=== PATIENT | female | born 1985 | race American Indian/Alaskan Native ===

== ENCOUNTER → 2018-02-12 | Outpatient (CLI) | payer BC | END | disposition home or self-care (01) | LOC: RADMRIMAIN 19:38 | PROVIDERS: ATTEND Family Medicine | DX: Z53.9 Procedure and treatment not carried out, unspecified reason (principal) ==

== ENCOUNTER 2018-02-20 23:37 | Emergency (ER) | payer BC ==
[~2018-02-20 23:37] MED LIST: ONDANSETRON 4 MG/2 ML VIAL ONE; PANTOPRAZOLE 40 MG/10 ML VIAL ONE; SODIUM CHLORIDE 0.9% 1,000 ML BAG ONE
[2018-02-21 06:58] LABS: ALT 39 U/L (9-52); AST 19 U/L (14-36); Albumin 4.2 g/dL (3.5-5.0); Alkaline Phosphatase 76 U/L (38-126); Amylase 45 U/L (30-110); Anion Gap 11 mmol/L; Blood Urea Nitrogen 15 mg/dL (7-17); Calcium 10.5 mg/dL (8.4-10.2); Carbon Dioxide 29 mmol/L (22-30); Chloride 102 mmol/L (98-107); GGT 13 U/L (12-43); Glucose 90 mg/dL (74-99); Lipase 125 U/L (23-300); Magnesium 2.1 mg/dL (1.6-2.3); Phosphorus 5.2 mg/dL (2.5-4.5); Potassium 4.5 mmol/L (3.5-5.1); Sodium 142 mmol/L (137-145); Total Bilirubin 0.4 mg/dL (0.2-1.3); Total Protein 7.1 g/dL (6.3-8.2)
[2018-02-21 07:00] LABS: Creatine Kinase 63 U/L (30-135); Creatine Kinase MB 0.4 ng/mL (0.0-2.4); Troponin I <0.012 ng/mL (0.000-0.034)
[2018-02-21 07:16] LABS: Basophils # (A) 0.1 k/uL (0-0.2); Basophils % (A) 1 %; Eosinophils # (A) 0.1 k/uL (0-0.7); Eosinophils % (A) 1 %; HCT 41.2 % (34.0-46.0); HGB 14.5 gm/dL (11.4-16.0); Lymphocytes # (A) 2.3 k/uL (1.0-4.8); Lymphocytes % (A) 29 %; MCH 30.3 pg (25.0-35.0); MCHC 35.1 g/dL (31.0-37.0); MCV 86.3 fL (80.0-100.0); Mean Platelet Volume 7.5; Monocytes # (A) 0.6 k/uL (0-1.0); Monocytes % (A) 7 %; Neutrophils # (A) 4.7 k/uL (1.3-7.7); Neutrophils % (A) 60 %; Platelet Count 279 k/uL (150-450); RBC 4.78 m/uL (3.80-5.40); RDW 12.3 % (11.5-15.5); WBC 7.8 k/uL (3.8-10.6)
--- NOTE | 2018-02-21 13:01 | US ---
History abdominal pain. Comparison none. TECHNIQUE: Right upper quadrant ultrasound. FINDINGS: Liver shows no focal defect. There is a sonolucent gallbladder. There is no wall thickening. Bile rajesh ts are not dilated. The common bile duct is 4 mm. Right kidney measures 11.6 x 5 cm. There is no hydr onephrosis. There is no ascites. Pancreas appears normal. CONCLUSION: Normal right upper quadrant sonogram.
== END 2018-02-21 01:45 | disposition home or self-care (01) ==
LOC: EC 23:37
DX: F41.9 Anxiety disorder, unspecified (principal); R10.9 Unspecified abdominal pain; R07.9 Chest pain, unspecified; R42 Dizziness and giddiness; R11.0 Nausea; E03.9 Hypothyroidism, unspecified; R00.2 Palpitations; Z87.19 Personal history of other diseases of the digestive system; Z79.899 Other long term (current) drug therapy; Z98.890 Other specified postprocedural states
CPT/HCPCS: 36415; 86900; 86901; 80053; 82150; 82550; 82553; 82977; 83690; 83735; 84100; 84484; 85025; 86850; 76705; 99284; 96374; 96375; 96361; J2405; C9113

== ENCOUNTER → 2022-09-07 | Outpatient (CLI) | payer OTHER ==
--- NOTE | 2022-09-07 15:12 | P.SLEEP ---
History of Present Illness DATE: 09/07/2022 CONSULTATION/NEW PATIENT EVALUATION HISTORY OF PRESENT ILLNESS/SLEEP-WAKE EVALUATION: 37year old lady gentleman had been evaluated in the sleep center for possible obstructive sleep apnea hypopnea syndrome. SLEEP SCHEDULE: Usually sleep schedule on weekdays from 11 PM until 7 AM, during days off from 11 PM p.m. until 8 AM. FALLING ASLEEP: Usually no problems with the falling to sleep. DURING SLEEP: Patient has loud snoring, witnessed episodes of sleep apneas. She wakes up from sleep with gasping for air, sweating, panic attacks, heartburn, grinding teeth. She wakes up from sleep 3 times with one episode of nocturia during the night. No history of hypnogogical hallucinations, sleep paralysis, or cataplexy. DURING THE DAY/WAKE STATE: In the morning patient wake up tired, has difficulties to pay attention, has problems with concentration, irritability, depression, claustrophobia. [place] sleepiness scale is 6, in November 2021 it was 15. Usually patient doesn't take naps. PAST MEDICAL HISTORY: ALLERGY, hypothyroidism, anxiety, depression, acid reflux. PAST SURGICAL HISTORY: MEDICATIONS: [place] thyroid. SOCIAL HISTORY: Positive for smoking for about 4 years half pack a day quit , alcohol consumption none at the present time. FAMILY HISTORY: Sleep apnea, atrial fibrillation, hypertension, thyroid problems, diabetes, during the sleep. REVIEW OF SYSTEMS: Loud snoring, multiple awakenings from sleep, sleepiness during the day. No fevers. No double vision. No recent chest pain. No shortness of breath. No abdominal pain. No bleeding episodes. No blood in urine. No seizure episodes. PHYSICAL EXAMINATION: GENERAL: A pleasant patient without any distress. VITAL SIGNS: BP 128/91 , HR 81 , RR 16 , weight 247 pounds, height 5 foot 3.5 inches, body mass index 43.0 . HEENT: PERRLA, EOMI. Evaluation of oropharynx showed tongue protrudes midline, short distance between soft palate and posterior pharyngeal wall. NECK: Supple. No JVD. Thyroid is not palpable. 15 inches in circumference. LUNGS: Clear to percussion and to auscultation. Good air exchange. No wheezing or rhonchi. HEART: S1, S2 regular. No murmurs, gallops or rubs. ABDOMEN: Soft and nontender. Bowel sounds are present. No organomegaly appreciated. Obese EXTREMITIES: No clubbing or cyanosis. FNPS: Awake, alert, and oriented x3. Cranial nerves 2 to 7 intact. There is no fasciculation or atrophy noted. No focal deficits observed. ASSESSMENT: 1. Loud snoring, witnessed episodes of sleep apneas, multiple awakenings from sleep, episodes of sleepiness. Obstructive sleep apnea hypopnea syndrome. 2. Obesity body mass index 43. 3 hypothyroidism. 4. ALLERGY. 5 acid reflux. 6. History of anxiety and depression. PLAN: 1. Polysomnography for evaluation of patient's breathing during sleep. 2. CPAP/BiPAP titration if sleep study confirms obstructive sleep apnea- hypopnea syndrome. 3. Preferable position during sleep on the side. 4. No driving if patient feels any sleepiness. Patient is aware of civil and criminal liability for unsafe driving. 5. Sleep hygiene with regular sleep time for at least 7.5-8 hours. 6. Watching and losing weight. Thank you very much for referring this patient for consultation. Sincerely, Jon Donald MD, PhD, FAASM. Diplomat of [place] [employer], Sleep Medicine Board by [place] [employer] [place] [employer] Corporate Secretary of [facility] [place] Past Medical History Past Medical History: Thyroid Disorder Additional Past Medical History / Comment(s): having random feelings of faintnes s pt feels may be realted to her menstral cycle see Dr Jaeger's h & P History of Any Multi-Drug Resistant Organisms: None Reported Past Surgical History: Section Additional Past Surgical History / Comment(s): oral surgery c section x2 Past Anesthesia/Blood Transfusion Reactions: No Reported Reaction Smoking Status: Former smoker Medications and Allergies Home Medications Medication Instructions Recorded Confirmed Type Thyroid, Pork [[place] Thyroid] 30 mg PO DAILY 06/14/14 08/11/22 History Allergies Allergy/AdvReac Type Severity Reaction Status Date / Time penicillin G Allergy Rash/Hives Verified 08/11/22 09:26 shellfish derived [Shellfish] Allergy Unknown Verified 08/11/22 09:26 decongestants Allergy Unknown Uncoded 08/11/22 09:27 Sleep Note - Sleep Note Sleep Note: Temperature: Pulse Rate: Respiratory Rate: Blood Pressure: SpO2: Height: Weight: BMI: Neck Circumference:
--- NOTE | 2022-09-07 16:01 | P.SLEEP ---
History of Present Illness DATE: 09/07/2022 CONSULTATION/NEW PATIENT EVALUATION HISTORY OF PRESENT ILLNESS/SLEEP-WAKE EVALUATION: 37 year old lady had been evaluated in the sleep center for possible obstructive sleep apnea hypopnea syndrome. SLEEP SCHEDULE: Usually sleep schedule on weekdays from 11 PM until 7 AM, during days off from 11 PM p.m. until 8 AM. FALLING ASLEEP: Usually no problems with the falling to sleep. DURING SLEEP: Patient has loud snoring, witnessed episodes of sleep apneas. She wakes up from sleep with gasping for air, sweating, panic attacks, heartburn, grinding teeth. She wakes up from sleep 3 times with one episode of nocturia during the night. No history of hypnogogical hallucinations, sleep paralysis, or cataplexy. DURING THE DAY/WAKE STATE: In the morning patient wake up tired, has difficulties to pay attention, has problems with concentration, irritability, depression, claustrophobia. [place] sleepiness scale is 6, in November 2021 it was 15. Usually patient doesn't take naps. PAST MEDICAL HISTORY: ALLERGY, hypothyroidism, anxiety, depression, acid reflux. PAST SURGICAL HISTORY: MEDICATIONS: [place] thyroid. SOCIAL HISTORY: Positive for smoking for about 4 years half pack a day quit , alcohol consumption none at the present time. FAMILY HISTORY: Sleep apnea, atrial fibrillation, hypertension, thyroid problems, diabetes, during the sleep. REVIEW OF SYSTEMS: Loud snoring, multiple awakenings from sleep, sleepiness during the day. No fevers. No double vision. No recent chest pain. No shortness of breath. No abdominal pain. No bleeding episodes. No blood in urine. No seizure episodes. PHYSICAL EXAMINATION: GENERAL: A pleasant patient without any distress. VITAL SIGNS: BP 128/91 , HR 81 , RR 16 , weight 247 pounds, height 5 foot 3.5 inches, body mass index 43.0 . HEENT: PERRLA, EOMI. Evaluation of oropharynx showed tongue protrudes midline, short distance between soft palate and posterior pharyngeal wall. NECK: Supple. No JVD. Thyroid is not palpable. 15 inches in circumference. LUNGS: Clear to percussion and to auscultation. Good air exchange. No wheezing or rhonchi. HEART: S1, S2 regular. No murmurs, gallops or rubs. ABDOMEN: Soft and nontender. Bowel sounds are present. No organomegaly appreciated. Obese EXTREMITIES: No clubbing or cyanosis. TACTICAL DEBRIEFER: Awake, alert, and oriented x3. Cranial nerves 2 to 7 intact. There is no fasciculation or atrophy noted. No focal deficits observed. ASSESSMENT: 1. Loud snoring, witnessed episodes of sleep apneas, multiple awakenings from sleep, episodes of sleepiness. Obstructive sleep apnea hypopnea syndrome. 2. Obesity body mass index 43. 3 hypothyroidism. 4. ALLERGY. 5 acid reflux. 6. History of anxiety and depression. PLAN: 1. Polysomnography for evaluation of patient's breathing during sleep. 2. CPAP/BiPAP titration if sleep study confirms obstructive sleep apnea- hypopnea syndrome. 3. Preferable position during sleep on the side. 4. No driving if patient feels any sleepiness. Patient is aware of civil and criminal liability for unsafe driving. 5. Sleep hygiene with regular sleep time for at least 7.5-8 hours. 6. Watching and losing weight. Thank you very much for referring this patient for consultation. Sincerely, Jon Donald MD, PhD, FAASM. Diplomat of [place] [employer], Sleep Medicine Board by [place] [employer] [place] [employer] Safety Director of [facility] [place] Past Medical History Past Medical History: Thyroid Disorder Additional Past Medical History / Comment(s): having random feelings of faintness pt feels may be realted to her menstral cycle see Dr Jaeger's h & P History of Any Multi-Drug Resistant Organisms: None Reported Past Surgical History: Section Additional Past Surgical History / Comment(s): oral surgery c section x2 Past Anesthesia/Blood Transfusion Reactions: No Reported Reaction Smoking Status: Former smoker Medications and Allergies Home Medications Medication Instructions Recorded Confirmed Type Thyroid, Pork [[place] Thyroid] 30 mg PO DAILY 06/14/14 08/11/22 History Allergies Allergy/AdvReac Type Severity Reaction Status Date / Time penicillin G Allergy Rash/Hives Verified 08/11/22 09:26 shellfish derived [Shellfish] Allergy Unknown Verified 08/11/22 09:26 decongestants Allergy Unknown Uncoded 08/11/22 09:27
== END ==
LOC: SLEEP 14:11
PROVIDERS: ATTEND Internal Medicine
DX: G47.33 Obstructive sleep apnea (adult) (pediatric) (principal); E66.9 Obesity, unspecified; Z68.43 Body mass index [BMI] 50.0-59.9, adult; E03.9 Hypothyroidism, unspecified; K21.9 Gastro-esophageal reflux disease without esophagitis; Z88.0 Allergy status to penicillin; Z87.891 Personal history of nicotine dependence; Z91.013 Allergy to seafood; Z88.8 Allergy status to other drugs, medicaments and biological substances
CPT/HCPCS: 99211

== ENCOUNTER 2022-10-20 02:15 | Emergency (ER) | payer OTHER ==
[2022-10-20 02:21] VITALS: BP 135/96; PULSE 106; TEMP 97.4
[2022-10-20 02:46] VITALS: RESP 16
--- NOTE | 2022-10-20 02:53 | ED ---
General Adult HPI - General Chief complaint: Upper Respiratory Infection Stated complaint: Weakness Time Seen by Provider: 10/20/22 02:29 Source: patient Mode of arrival: ambulatory Limitations: no limitations - History of Present Illness Initial comments: Dictation was produced using [employer] dictation software. please excuse any grammatical, word or spelling errors. Chief Complaint: 37-year-old female with no significant comorbidities presents to the emergency department for persistent viral illness History of Present Illness: Patient is 29-year-old female she has no significant past medical history. She for the last 7 days she's been sick. 2 weeks prior to that she was sick with influenza. She after that bout of influenza felt relatively improved until one week ago where she feels like her symptoms came back. She completed a course of Z-Natanael for her primary care doctor. She complains of runny nose sore throat and nonproductive cough. Patient feels like she is negative better which is making her very frustrated. The ROS documented in this emergency department record has been reviewed and confirmed by me. Those systems with pertinent positive or negative responses have been documented in the HPI. All other systems are other negative and/or noncontributory. PHYSICAL EXAM: General Impression: Alert and oriented x3, not in acute distress HEENT: Normocephalic atraumatic, extra-ocular movements intact, pupils equal and reactive to light bilaterally, mucous membranes moist, posterior oropharyngeal erythema with mild exudates Cardiovascular: Heart regular rate and rhythm Chest: Able to complete full sentences, no retractions, no tachypnea, lungs clear to auscultation bilaterally Abdomen: abdomen soft, non-tender, non-distended, no organomegaly Musculoskeletal: Pulses present and equal in all extremities, no peripheral edema Motor: no focal deficits noted Neurological: CN II-XII grossly intact, no focal motor or sensory deficits noted Skin: Intact with no visualized rashes Psych: Normal affect and mood ED course:. 37 yo female presents emergency Department with persistent viral URI symptoms. She is completely course of Zithromax pack. Vital signs upon arrival are within acceptable limits. Nursing notes and chart review was performed Laboratory evaluation obtained. CBC unremarkable. Metabolic panel is negative. 4 panel viral PCR is negative. Group A strep is negative. Chest x-ray shows no acute processes. Pending throat swab cultures. Patient observed in emergency department for 1 hour 30 minutes. Reevaluated at bedside at 4:00 and found with stable medical condition. Patient told me that she feels sick and is having hard time believing that there is nothing wrong. States that she is so anxious she feels suicidal and depressed. Patient will be evaluated by EPS. Suicide precautions initiated. Patient evaluated by EPS and clear for discharge." Negative certification completed. Patient given safety plan. Patient discharged. - Related Data Home Medications Medication Instructions Recorded Confirmed Thyroid, Pork [[place] Thyroid] 30 mg PO DAILY 06/14/14 08/11/22 Allergies Allergy/AdvReac Type Severity Reaction Status Date / Time penicillin G Allergy Rash/Hives Verified 10/20/22 02:17 shellfish derived [Shellfish] Allergy Unknown Verified 10/20/22 02:17 decongestants Allergy Unknown Uncoded 10/20/22 02:17 Review of Systems ROS Statement: Those systems with pertinent positive or pertinent negative responses have been documented in the HPI. ROS Other: All systems not noted in ROS Statement are negative. Past Medical History Past Medical History: Thyroid Disorder Additional Past Medical History / Comment(s): having random feelings of faintness pt feels may be realted to her menstral cycle see Dr Jaeger's h & P History of Any Multi-Drug Resistant Organisms: None Reported Past Surgical History: Section Additional Past Surgical History / Comment(s): oral surgery c section x2 Past Anesthesia/Blood Transfusion Reactions: No Reported Reaction Past Psychological History: Anxiety Smoking Status: Former smoker Past Alcohol Use History: None Reported Past Drug Use History: None Reported General Exam Limitations: no limitations Course Vital Signs 10/20/22 10/20/22 02:18 02:44 Temperature 97.4 F L Pulse Rate 106 H Respiratory 18 16 Rate Blood Pressure 135/96 O2 Sat by Pulse 98 Oximetry Medical Decision Making - Lab Data Result diagrams: 10/20/22 03:23 10/20/22 03:23 Lab Results 10/20/22 10/20/22 10/20/22 Range/Units 02:44 03:00 03:23 WBC 8.5 (3.8-10.6) k/uL RBC 4.71 (3.80-5.40) m/uL Hgb 14.0 (11.4-16.0) gm/dL Hct 40.5 (34.0-46.0) % MCV 86.0 (80.0-100.0) fL MCH 29.7 (25.0-35.0) pg MCHC 34.5 (31.0-37.0) g/dL RDW 11.9 (11.5-15.5) % Plt Count 258 (150-450) k/uL MPV 8.6 Neutrophils % 68 % Lymphocytes % 23 % Monocytes % 6 % Eosinophils % 1 % Basophils % 1 % Neutrophils # 5.8 (1.3-7.7) k/uL Lymphocytes # 2.0 (1.0-4.8) k/uL Monocytes # 0.5 (0-1.0) k/uL Eosinophils # 0.1 (0-0.7) k/uL Basophils # 0.1 (0-0.2) k/uL Sodium (137-145) mmol/L Potassium (3.5-5.1) mmol/L Chloride (98-107) mmol/L Carbon Dioxide (22-30) mmol/L Anion Gap mmol/L BUN (7-17) mg/dL Creatinine (0.52-1.04) mg/dL Est GFR (CKD-EPI)AfAm (>60 ml/min/1.73 sqM) Est GFR (CKD-EPI)NonAf (>60 ml/min/1.73 sqM) Glucose (74-99) mg/dL Calcium (8.4-10.2) mg/dL Influenza Type A (PCR) Not Detected (Not Detectd) Influenza Type B (PCR) Not Detected (Not Detectd) RSV (PCR) Not Detected (Not Detectd) SARS-CoV-2 (PCR) Not Detected (Not Detectd) Group A Strep (PCR) NOT DETECTED (Not Detectd) 10/20/22 Range/Units 03:23 WBC (3.8-10.6) k/uL RBC (3.80-5.40) m/uL Hgb (11.4-16.0) gm/dL Hct (34.0-46.0) % MCV (80.0-100.0) fL MCH (25.0-35.0) pg MCHC (31.0-37.0) g/dL RDW (11.5-15.5) % Plt Count (150-450) k/uL MPV Neutrophils % % Lymphocytes % % Monocytes % % Eosinophils % % Basophils % % Neutrophils # (1.3-7.7) k/uL Lymphocytes # (1.0-4.8) k/uL Monocytes # (0-1.0) k/uL Eosinophils # (0-0.7) k/uL Basophils # (0-0.2) k/uL Sodium 139 (137-145) mmol/L Potassium 3.9 (3.5-5.1) mmol/L Chloride 106 (98-107) mmol/L Carbon Dioxide 26 (22-30) mmol/L Anion Gap 7 mmol/L BUN 13 (7-17) mg/dL Creatinine 0.53 (0.52-1.04) mg/dL Est GFR (CKD-EPI)AfAm >90 (>60 ml/min/1.73 sqM) Est GFR (CKD-EPI)NonAf >90 (>60 ml/min/1.73 sqM) Glucose 110 H (74-99) mg/dL Calcium 9.1 (8.4-10.2) mg/dL Influenza Type A (PCR) (Not Detectd) Influenza Type B (PCR) (Not Detectd) RSV (PCR) (Not Detectd) SARS-CoV-2 (PCR) (Not Detectd) Group A Strep (PCR) (Not Detectd) Disposition Clinical Impression: URI (upper respiratory infection), Suicidal ideation Disposition: HOME SELF-CARE Condition: Good Instructions (If sedation given, give patient instructions): Suicide Prevention (ED) Is patient prescribed a controlled substance at d/c from ED?: No Referrals: Ban Pulliam MD [Primary Care Provider] - 1-2 days Time of Disposition: 06:09
[2022-10-20 03:33] LABS: Basophils # (A) 0.1 k/uL (0-0.2); Basophils % (A) 1 %; Eosinophils # (A) 0.1 k/uL (0-0.7); Eosinophils % (A) 1 %; HCT 40.5 % (34.0-46.0); Lymphocytes % (A) 23 %; MCH 29.7 pg (25.0-35.0); MCHC 34.5 g/dL (31.0-37.0); Mean Platelet Volume 8.6; Monocytes # (A) 0.5 k/uL (0-1.0); Monocytes % (A) 6 %; Neutrophils # (A) 5.8 k/uL (1.3-7.7); Neutrophils % (A) 68 %; Platelet Count 258 k/uL (150-450); RBC 4.71 m/uL (3.80-5.40); RDW 11.9 % (11.5-15.5); WBC 8.5 k/uL (3.8-10.6)
[2022-10-20 03:42] LABS: Potassium 3.9 mmol/L (3.5-5.1)
[2022-10-20 03:43] LABS: African American GFR (CKD) >90 (>60 ml/min/1.73 sqM); Anion Gap 7 mmol/L; Blood Urea Nitrogen 13 mg/dL (7-17); Calcium 9.1 mg/dL (8.4-10.2); Carbon Dioxide 26 mmol/L (22-30); Chloride 106 mmol/L (98-107); Glucose 110 mg/dL (74-99); Non-African American GFR(CKD) >90 (>60 ml/min/1.73 sqM); Sodium 139 mmol/L (137-145)
--- NOTE | 2022-10-20 03:51 | XR ---
EXAMINATION TYPE: XR chest 2V DATE OF EXAM: 10/20/2022 COMPARISON: 01/24/2016 HISTORY: Cough TECHNIQUE: 2 view FINDINGS: Heart is normal. Lungs are clear. Diaphragm is normal. Bony thorax is intact. IMPRESSION: Normal chest. No change.
== END 2022-10-20 06:12 | disposition home or self-care (01) ==
LOC: EC 02:15
DX: J06.9 Acute upper respiratory infection, unspecified (principal); R45.851 Suicidal ideations; E07.9 Disorder of thyroid, unspecified; F41.9 Anxiety disorder, unspecified; Z87.891 Personal history of nicotine dependence; Z20.822 Contact with and (suspected) exposure to COVID-19; Z79.890 Hormone replacement therapy; Z88.0 Allergy status to penicillin; Z91.013 Allergy to seafood; Z88.8 Allergy status to other drugs, medicaments and biological substances
CPT/HCPCS: 36415; 71046; 80048; 85025; 87636; 87651; 99285